=== PATIENT | female | born 1965 | race Caucasian/White ===

== ENCOUNTER 2019-12-26 11:43 | Outpatient (CLI) | payer MEDICARE, MEDICAID, SELFPAY ==
--- NOTE | ~2019-12-26 | XR_ITS ---
EXAMINATION: XR lumbar spine 2-3V DATE: 12/26/2019 12:14 INDICATION: Unspecified radiculopathy TECHNIQUE: Anteroposterior and lateral views of the lumbar spine, and cone-down lateral view of the l umbosacral junction were obtained. COMPARISON: MRI, 01/21/2018 FINDINGS: There are 3 mm of anterolisthesis of L3 on L4. There is mild chronic loss of intervertebral disc space height throughout the lumbar spine. The vertebral body heights are maintained. An L4 limb us vertebra is noted. Small degenerative osteophytes project from the anterior endplates of multiple vertebral bodies. There is no fracture. Calcified atherosclerosis is noted. There is mild to moderate facet osteoarthritis. IMPRESSION: 1. Mild to moderate lumbar spondylosis without acute findings or significant interval change. Reviewed, dictated and finalized at location A. IMPRESSION: 1. Mild to moderate lumbar spondylosis without acute findings or significant in terval change.
--- NOTE | ~2019-12-26 | XR_ITS ---
EXAMINATION: XR hip BI wo pelvis INDICATION: Bilateral hip pain TECHNIQUE: Two views of each hip are obtained. COMPARISON: None available FINDINGS: Bone alignment is normal. There is no fracture. Phleboliths are noted in the pelvis. Mild o steitis pubis is present. IMPRESSION: 1. No acute osseous abnormality. Reviewed, dictated and finalized at location A.
== END 2019-12-26 11:44 | disposition home or self-care (01) ==
PROVIDERS: PCP Internal Medicine; Visit Provider Pain Medicine Interventional Pain Medicine
DX: M25.552 Pain in left hip (principal); M25.551 Pain in right hip; M47.896 Other spondylosis, lumbar region
CPT/HCPCS: 72100; 73521

== ENCOUNTER → 2020-02-02 15:04 | Outpatient (CLI) | payer MEDICARE, MEDICAID, SELFPAY ==
--- NOTE | ~2020-02-02 | MR_ITS ---
EXAMINATION: MR lumbar spine wo con EXAM DATE: 02/02/2020 15:42 INDICATION: Lumbar radiculopathy. Low back pain, bilateral leg numbness, progressing. TECHNIQUE: Multi-sequential, multiplanar MR images of the lumbar spine were obtained without contrast . Sagittal T1, T2, T2 fat saturation images. Axial T2 weighted images. Comparison is made to prior examination from 01/21/2018. FINDINGS: There is moderate disc disease at L3-4 and L4-5, mild to moderate at the other lumbar level s. There is L4 limbus vertebral body, chronic finding unchanged. The conus medullaris terminates at t he T12-L1 level and has normal signal intensity and morphology. There are no suspicious marrow signa l abnormalities. The vertebral bodies are aligned in the AP dimension. Paraspinal soft tissue is unre markable. Level by level evaluation: T12-L1: Disc does not extend beyond the endplate margin. Facet arthropathy: Mild. Neural foraminal stenosis: No stenosis. Central canal stenosis: No stenosis. L1-L2: There is a mild diffuse disc bulge. Facet arthropathy: Mild. Neural foraminal stenosis: No stenosis. Central canal stenosis: No stenosis. L2-L3: There is a mild to moderate diffuse disc bulge. Facet arthropathy: Mild. Neural foraminal stenosis: No stenosis. Central canal stenosis: Mild. L3-L4: There is a moderate diffuse disc bulge. Facet arthropathy: Mild to moderate. Neural foraminal stenosis: Mild bilateral. Central canal stenosis: Moderate. L4-L5: There is a mild diffuse disc bulge. Facet arthropathy: Mild. Neural foraminal stenosis: Mild to moderate bilateral. Central canal stenosis: Mild. L5-S1: There is a mild diffuse disc bulge. Facet arthropathy: Mild. Neural foraminal stenosis: Mild right. Central canal stenosis: No stenosis. Compared to 2018, mild progression in the disc disease and L3-4 Central canal stenosis. IMPRESSION: 1. L3-4 moderate central canal stenosis. 2. Otherwise overall mild to moderate spondylosis. Reviewed, dictated and finalized at location A.
== END ==
DX: M47.26 Other spondylosis with radiculopathy, lumbar region (principal); G89.4 Chronic pain syndrome; Z13.89 Encounter for screening for other disorder; Z79.891 Long term (current) use of opiate analgesic
CPT/HCPCS: 72148

== ENCOUNTER → 2021-03-06 12:09 | Outpatient (CLI) | payer MEDICARE, MEDICAID, SELFPAY ==
--- NOTE | ~2021-03-06 | XR_ITS ---
EXAMINATION: XR lumbar spine 2-3V DATE: 03/06/2021 13:37 INDICATION: Lumbar radiculopathy. TECHNIQUE: 3 views of lumbar spine were obtained. COMPARISON: Lumbar spine radiograph 12/26/2019 FINDINGS: There is 3 degrees levocurvature of lumbar spine. Vertebral body heights are normal. There are Schmorl's nodes at most levels. There is mildly decreased disc height at L3-L4. There is multilev el mild to moderate facet joint osteoarthritis, worse in lower lumbar spine. IMPRESSION: 1. Mild lumbar spondylosis. Reviewed, dictated and finalized at location A. IMPRESSION: 1. Mild lumbar spondylosis.
--- NOTE | ~2021-03-06 | XR_ITS ---
EXAMINATION: XR hip BI wo pelvis INDICATION: Low back pain radiating to the hips TECHNIQUE: Two views of each hip are obtained. COMPARISON: 12/26/2019 FINDINGS: Bone alignment is normal. There is no fracture. Osteitis pubis is again noted. There are ph leboliths of the pelvis. IMPRESSION: 1. No acute osseous abnormality. Reviewed, dictated and finalized at location B.
== END ==
PROVIDERS: Visit Provider Family Medicine
DX: M47.816 Spondylosis without myelopathy or radiculopathy, lumbar region (principal); M54.16 Radiculopathy, lumbar region; Z13.89 Encounter for screening for other disorder; M25.559 Pain in unspecified hip; G89.4 Chronic pain syndrome; Z79.891 Long term (current) use of opiate analgesic; Z51.81 Encounter for therapeutic drug level monitoring
CPT/HCPCS: 72100; 73521

== ENCOUNTER → 2023-01-07 12:08 | Outpatient (CLI) | payer MEDICARE, MEDICAID, SELFPAY ==
--- NOTE | ~2023-01-07 | XR_ITS ---
Lumbosacral Spine: AP and lateral views Clinical History: Pain Findings: The normal lordotic curve is maintained. The vertebral bodies and posterior elements are i ntact. There is moderate facet arthropathy from L3 through S1. There is moderate degenerative disc na rrowing at L3-L4. There is mild degenerative disc change at the remaining lumbar levels. The sacroili ac joints are normally outlined. Impression: Mild degenerative spondylosis overall, as detailed above. Reviewed, dictated and finalized at location M. Impression: Mild degenerative spondylosis overall, as detailed above.
== END ==
PROVIDERS: PCP Pain Medicine Interventional Pain Medicine; Visit Provider Pain Medicine Interventional Pain Medicine
DX: Z51.81 Encounter for therapeutic drug level monitoring (principal); Z79.891 Long term (current) use of opiate analgesic; Z13.89 Encounter for screening for other disorder; G89.4 Chronic pain syndrome; M47.26 Other spondylosis with radiculopathy, lumbar region; M47.27 Other spondylosis with radiculopathy, lumbosacral region
CPT/HCPCS: 72100

== ENCOUNTER 2024-04-05 13:18 | Outpatient (CLI) | payer MEDICARE, MEDICAID, SELFPAY ==
--- NOTE | ~2024-04-05 | XR_ITS ---
XR hip BI wo pelvis Ordering provider: Lucas Perez MD History: . Hip pain . Comparison: March 06, 2021 FINDINGS: BONES: No acute fracture or dislocation. HIP JOINT SPACES: Moderate osteoarthritic changes on the right hip.. SACROILIAC JOINT SPACES/LUMBAR SPINE: The sacroiliac joint spaces are normal. Mild degenerative parson es of the visualized lower lumbar spine. PUBIC SYMPHYSIS: Pubic symphysitis. SOFT TISSUES: Normal. IMPRESSION: No acute osseous abnormality of the bilateral hips and pelvis. Moderate osteoarthritic changes of the right hip. Reviewed, dictated and finalized at location A.
--- NOTE | ~2024-04-05 | XR_ITS ---
3 VIEWS LUMBAR SPINE Ordering provider: Lucas Perez MD History: . Radiculopathy lumbosacral region . Comparison: January 07, 2023 FINDINGS: VERTEBRAL BODIES: No visible fracture or subluxation. Degenerative changes of the spine. DISK SPACES: Narrowing of all the disc spaces. Multilevel facet joint disease. SOFT TISSUES: Aortic atherosclerotic changes. IMPRESSION: No acute osseous abnormality lumbar spine. Multilevel degenerative disc disease. Reviewed, dictated and finalized at location A.
== END 2024-04-05 13:19 | disposition home or self-care (01) ==
LOC: MICIMG 13:21
PROVIDERS: PCP Pain Medicine Interventional Pain Medicine; Visit Provider Pain Medicine Interventional Pain Medicine
DX: M25.552 Pain in left hip (principal); M54.17 Radiculopathy, lumbosacral region; M51.369 Other intervertebral disc degeneration, lumbar region without mention of lumbar back pain or lower extremity pain; M16.11 Unilateral primary osteoarthritis, right hip
CPT/HCPCS: 72100; 73521